=== PATIENT | male | born 1990 | race Hispanic/Latino ===

== ENCOUNTER 2017-01-04 22:25 | Emergency (ER) | payer MEDICAID ==
[2017-01-04 22:26] VITALS: BMI 29.0
[2017-01-04] MEDS ORDERED: Sodium Chloride 0.9% 1,000 ML IV ONE (23:11)
[2017-01-04] MEDS ORDERED: Pantoprazole 80 MG in Sodium Chloride 0.9% 100 ML IV STA (23:11)
--- NOTE | 2017-01-04 23:11 | C.PDOC ---
History Of Present Illness Patient presents to the ER with a complaint of multiple episodes of rectal bleeding throughout the day, associated with lightheadedness and dizziness. Patient states he has had bright red blood per rectum; he notes he was seen in [facility] yesterday for abdominal pain, patient had a negative CT and was discharged home. Denies chest pain, palpitations, SOB, or foreign body insertion. Time Seen by Provider: 01/04/17 23:04 Chief Complaint (Nursing): Male Genitourinary History Per: Patient History/Exam Limitations: no limitations Onset/Duration Of Symptoms: Hrs Current Symptoms Are (Timing): Still Present Severity: Mild Pain Scale Rating Of: 4 Quality Of Discomfort: Unable To Describe Associated Symptoms: denies: Fever, Chills, Diarrhea, Chest Pain, Constipation, Other (SOB, palpitations) Alleviating Factors: None Recent travel outside of the [place]: No Past Medical History Reviewed: Historical Data, Nursing Documentation, Vital Signs Vital Signs: Last Vital Signs Temp 98.1 F 01/04/17 22:36 Pulse 84 01/04/17 22:36 Resp 17 01/04/17 22:36 BP 112/73 01/04/17 22:36 Pulse Ox 100 01/04/17 23:53 - Medical History PMH: Bipolar Disorder Surgical History: No Surg Hx Family History: States: No Known Family Hx - Social History Hx Alcohol Use: No Hx Substance Use: No - Immunization History Hx Tetanus Toxoid Vaccination: Yes Hx Influenza Vaccination: No Hx Pneumococcal Vaccination: No Review Of Systems Constitutional: Negative for: Fever, Chills Cardiovascular: Negative for: Chest Pain, Palpitations Respiratory: Negative for: Shortness of Breath Gastrointestinal: Positive for: Other (Rectal bleeding). Negative for: Nausea Genitourinary: Negative for: Dysuria Musculoskeletal: Negative for: Back Pain Skin: Negative for: Rash Neurological: Negative for: Weakness Psych: Negative for: Anxiety Physical Exam - Physical Exam Appears: Non-toxic, Other (Awake, Alert) Skin: Warm, Dry Head: Normacephalic Eye(s): bilateral: Normal Inspection Oral Mucosa: Moist Neck: Supple Chest: Symmetrical Cardiovascular: Rhythm Regular Respiratory: No Rales, No Rhonchi, No Wheezing Gastrointestinal/Abdominal: Soft, No Tenderness Rectal: Normal Exam, No Heme Positive, Maroon Stool, No Hemorrhoids, No Tenderness Back: No CVA Tenderness Extremity: Normal ROM Extremity: Bilateral: Atraumatic Pulses: Left Dorsalis Pedis: Normal, Right Dorsalis Pedis: Normal Neurological/Psych: Oriented x3, Normal Speech, Normal Cognition Gait: Steady ED Course And Treatment - Laboratory Results Result Diagrams: 01/04/17 23:25 01/04/17 23:25 O2 Sat by Pulse Oximetry: 100 (Room air) Pulse Ox Interpretation: Normal Progress Note: Blood work, urinalysis, and occult blood test ordered. Protonix and IV fluids administered. Medical Decision Making Medical Decision Making: Upon provider reevaluation patient is feeling better, is medically stable, and requires no further treatment in the ED at this time. Patient will be discharged home with Rx for miralax . Counseling was provided and all questions were answered regarding diagnosis and need for follow up with dr barron. There is agreement to discharge plan. Return if symptoms persist or worsen. Disposition Counseled Patient/Family Regarding: Studies Performed, Diagnosis, Need For Followup - Disposition Referrals: Ramon Barron MD [Primary Care Provider] - Disposition: HOME/ ROUTINE Disposition Time: 23:04 Condition: FAIR Instructions: Rectal Bleeding (DC) Forms: [employer] (Martiniquais) - Clinical Impression Clinical Impression: Rectal bleeding - Scribe Statement The provider has reviewed the documentation as recorded by the Scribe Yohan Rob All medical record entries made by the Scribe were at my direction and personally dictated by me. I have reviewed the chart and agree that the record accurately reflects my personal performance of the history, physical exam, medical decision making, and the department course for this patient. I have also personally directed, reviewed, and agree with the discharge instructions and disposition.
[2017-01-04] MEDS ORDERED: Sodium Chloride 0.9% 1,000 ML ONE (23:26)
[2017-01-04 23:34] LABS: BASO % 0.5 % (0.0-2.0); EOS % 0.4 % (0.0-4.0); HEMATOCRIT 41.3 % (35.0-51.0); LYMPH # 2.6 K/uL (1.0-4.3); LYMPH % 26.8 % (20.0-40.0); MEAN CELL VOLUME 87.1 fL (80.0-94.0); MEAN CORPUSCULAR HEMOGLOBIN 29.7 pg (27.0-31.0); MEAN PLATELET VOLUME 8.5 fL (7.2-11.7); MONO # 0.9 K/uL (0.0-0.8); MONO % 9.9 % (0.0-10.0); NRBC % 0.1 % (0.0-2.0); RED CELL DISTRIBUTION WIDTH 13.8 % (11.5-14.5); WHITE BLOOD COUNT 9.5 K/uL (4.8-10.8)
[2017-01-04 23:37] LABS: CHLORIDE 100 mmol/L (98-107); SODIUM 135 mmol/L (132-148)
[2017-01-04 23:39] LABS: GFR AFRICAN-AMERICAN > 60; RBC URINE < 1 /hpf (0-3); URINE BACTERIA RARE (<OCC); URINE BILIRUBIN NEGATIVE (NEGATIVE); URINE BLOOD NEGATIVE (NEGATIVE); URINE COLOR Yellow (YELLOW); URINE GLUCOSE (UA) NORMAL (Normal); URINE KETONE NEGATIVE (NEGATIVE); URINE LEUKOCYTE ESTERASE NEG Leu/uL (Negative); URINE PROTEIN NEGATIVE (NEGATIVE); WBC URINE 2 /hpf (0-5)
[2017-01-04 23:40] LABS: ALB/GLOB RATIO 1.5 (1.0-2.1); ALKALINE PHOSPHATASE 40 U/L (38-126); ALT/SGPT 30 U/L (21-72); AST/SGOT 18 U/L (17-59); BILIRUBIN,TOTAL 0.8 mg/dL (0.2-1.3); BLOOD UREA NITROGEN 16 mg/dL (9-20); CARBON DIOXIDE 24 mmol/L (22-30); GLUCOSE,RANDOM 96 mg/dL (75-110); TOTAL PROTEIN 6.8 g/dL (6.3-8.3)
[2017-01-05 00:47] VITALS: BP 99/64; PULSE 64; RESP 16; TEMP 97.5; O2SAT 98
== END 2017-01-05 01:11 | disposition home or self-care (01) ==
LOC: C.ER 22:25 → SUPCPDRO 22:25 → C.ER 01-05 01:11
DX: K62.5 Hemorrhage of anus and rectum (principal)
CPT/HCPCS: 80053; 81001; 85025; 85610; 85730; 86850; 86900; 96361; 96374; 99285; C9113; G0328; J7040

== ENCOUNTER 2017-06-05 19:03 | Inpatient (IN) | payer MEDICAID ==
[2017-06-05 19:03] VITALS: BMI 29.1
--- NOTE | 2017-06-05 19:27 | C.PDOC ---
History Of Present Illness Homeless 27 yo male who is with history of bipolar disorder presents to the ER stating he has suicidal and homicidal ideation. Patient reports good compliance with his psych medications. Denies drug or ETOH use. Time Seen by Provider: 06/05/17 19:26 Chief Complaint (Nursing): Psychiatric Evaluation History Per: Patient History/Exam Limitations: no limitations Onset/Duration Of Symptoms: Days Current Symptoms Are (Timing): Still Present Suicide/Self Injury Attempted (Context): None Associated Symptoms: Suicidal Thoughts, Other (Homicidal ideation). denies: Suicidal Plan Involuntary Hold By: None Recent travel outside of the [place]: No Past Medical History Reviewed: Historical Data, Nursing Documentation, Vital Signs Vital Signs: Last Vital Signs Temp 98.1 F 06/05/17 19:10 Pulse 42 L 06/05/17 19:10 Resp 16 06/05/17 19:10 BP 109/72 06/05/17 19:10 Pulse Ox 99 06/05/17 20:47 - Medical History PMH: Bipolar Disorder Family History: States: Unknown Family Hx - Social History Hx Alcohol Use: No Hx Substance Use: No - Immunization History Hx Tetanus Toxoid Vaccination: Yes Hx Influenza Vaccination: No Hx Pneumococcal Vaccination: No Review Of Systems Except As Marked, All Systems Reviewed And Found Negative. Psych: Positive for: Suicidal ideation, Other (Homicidal ideation) Physical Exam - Physical Exam Appears: Non-toxic, No Acute Distress, Other (Flat affect, actively verbalizing SI and HI, calm, cooperative, no active hallucinations) Skin: Normal Color, Warm, Dry Head: Atraumatic, Normacephalic Eye(s): bilateral: Normal Inspection Chest: Symmetrical, No Tenderness Cardiovascular: Rhythm Regular Respiratory: Normal Breath Sounds, No Accessory Muscle Use Gastrointestinal/Abdominal: Soft, No Tenderness Extremity: Normal ROM (x4) Neurological/Psych: Oriented x3, Normal Speech ED Course And Treatment - Laboratory Results Result Diagrams: 06/05/17 20:01 06/05/17 20:01 O2 Sat by Pulse Oximetry: 99 Progress - Re-Evaluation Re-evaluation Note: 06/05/17 20:29 EXAM [facility] MED CLEAR FOR PSYCH EVAL. CRISIS NOTIFIED - Data Reviewed Data Reviewed: Old records Medical Decision Making Medical Decision Making: Plan: * Blood work * Urinalysis * Crisis consult Disposition Discussed With DrTheo: Nestor M Elva Counseled Patient/Family Regarding: Studies Performed, Diagnosis - Disposition Disposition: HOSPITALIZED Disposition Time: 22:05 Condition: STABLE Forms: [employer] (Frisian) - Clinical Impression Clinical Impression: Bipolar disorder, Suicidal ideation, Homicidal ideation - Scribe Statement The provider has reviewed the documentation as recorded by the Scribiman Rob All medical record entries made by the Scribe were at my direction and personally dictated by me. I have reviewed the chart and agree that the record accurately reflects my personal performance of the history, physical exam, medical decision making, and the department course for this patient. I have also personally directed, reviewed, and agree with the discharge instructions and disposition. Decision To Admit - Pt Status Changed To: Hospital Disposition Of: Inpatient - Admit Certification Admit to Inpatient:: After my assessment, the patient will require hospitalization for at least two midnights. This is because of the severity of symptoms shown, intensity of services needed, and/or the medical risk in this patient being treated as an outpatient. - InPatient: Physician Admission Certification: I certify that this patient requires 2 or more midnights of care for the following reason:: SEE NOTE - . Bed Request Type: Psychiatry Admitting Physician: Nestor Stevenson Patient Diagnosis: Bipolar disorder, Suicidal ideation, Homicidal ideation
[2017-06-05 20:04] LABS: BASO # 0.1 K/uL (0.0-0.2); BASO % 0.8 % (0.0-2.0); EOS # 0.2 K/uL (0.0-0.7); HEMOGLOBIN 15.1 g/dL (12.0-18.0); LYMPH # 3.4 K/uL (1.0-4.3); LYMPH % 38.5 % (20.0-40.0); MEAN CELL VOLUME 86.4 fL (80.0-94.0); MEAN CORPUSCULAR HEMOGLOBIN 30.1 pg (27.0-31.0); MEAN CORPUSCULAR HGB CONC 34.8 g/dL (33.0-37.0); MEAN PLATELET VOLUME 8.2 fL (7.2-11.7); MONO # 0.8 K/uL (0.0-0.8); MONO % 9.3 % (0.0-10.0); NEUT # 4.4 K/uL (1.8-7.0); NEUT % 49.4 % (50.0-75.0); NRBC % 0.1 % (0.0-2.0); RBC 5.02 Mil/uL (4.40-5.90); RED CELL DISTRIBUTION WIDTH 13.8 % (11.5-14.5); WHITE BLOOD COUNT 8.9 K/uL (4.8-10.8)
[2017-06-05 20:12] LABS: SQUAMOUS EPITHIAL < 1 /hpf (0-5); URINE BACTERIA RARE (<OCC); URINE BILIRUBIN NEGATIVE (NEGATIVE); URINE BLOOD NEGATIVE (NEGATIVE); URINE CLARITY Clear (Clear); URINE COLOR Yellow (YELLOW); URINE GLUCOSE (UA) NORMAL (Normal); URINE LEUKOCYTE ESTERASE NEG Leu/uL (Negative); URINE PROTEIN NEGATIVE (NEGATIVE); URINE UROBILINOGEN NORMAL mg/dL (0.2-1.0)
[2017-06-05 20:18] LABS: ALB/GLOB RATIO 1.3 (1.0-2.1); ALT/SGPT 31 U/L (21-72); AST/SGOT 23 U/L (17-59); BLOOD UREA NITROGEN 15 mg/dL (9-20); CALCIUM 9.1 mg/dl (8.6-10.4); GFR AFRICAN-AMERICAN > 60; GFR NON-AFRICAN AMERICAN > 60
[2017-06-05 20:24] LABS: BARBITURATES, UR NEGATIVE (NEGATIVE); BENZODIAZEPINES, UR NEGATIVE (NEGATIVE); OPIATES, UR NEGATIVE (NEGATIVE); PHENCYCLIDINE, UR NEGATIVE (NEGATIVE)
--- NOTE | 2017-06-05 23:42 | PCM.BM ---
<George Tilley - Last Filed: 06/05/17 23:39> Treatment Plan Problems - Problems identified on initial assessmt Homicidal Ideation Date Initiated: 06/05/17 Time Initiated: 23:00 Assessment reference: NA Status: Active Suicidal Ideation Date Initiated: 06/05/17 Time Initiated: 23:00 Assessment reference: NA Status: Active Treatment assets and liabiliti Patient Assests: cooperative, self-reliant, ADL independent, physically healthy , negotiates basic needs Patient Liabilities: live alone, financial problems, poor support system, relationship conflicts - Milieu Protocol Maintain good personal hygiene: daily Encourage regular showers, daily Remind patient to perform daily oral care, daily Assist patient to perform ADL's Maintain personal safety: every shift Educate patient to report safety concerns to staff, every shift Monitor environment for contraband/sharps Medication safety: Monitor for expected outcome, potential side effects: every shift, Assess barriers to learning: every shift, Assess readiness for medication education: every shift <Katy Bennett - Last Filed: 06/08/17 10:51> - Diagnosis (1) Bipolar disorder Status: Acute Interventions: 06/08/17 10:51 * Assess/adjust medications daily and /or as needed * See patient on an individual basis 7x/week to assess level of manic behaviors and stability * Discuss risks, benefits, side effects and alternatives of medications * <Lola Pugh - Last Filed: 06/08/17 11:17> Family Contact Family involvement: Famliy/SO not involved - Goals for Treatment Patient goals for treatment: "I need constant therapy." Discharge/Continuing Care - Education Needs Education Needs: Patient Medication, Patient Coping Skills - Discharge Discharge Criteria: Tolerates medication w/o severe side effects, Reduction of target symptoms Discharge to:: Home - Treatment Team Participation Discussed with Family/SO: No Was Patient/Family/SO present at Treatment Team Meeting: Yes
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
[2017-06-06] MEDS: Divalproex 500 mg DR Tab PO SCH ×2 (14:27→17:13)
[2017-06-07] MEDS: Divalproex 500 mg DR Tab PO SCH ×2 (10:46→17:26)
--- NOTE | 2017-06-07 13:51 | PCM.PYCHPN ---
Psychiatric Progress Note - Psychiatric Progress Note Patient seen today, length of contact: 15 min Patient Chief Complaint: "I want to kill my mother and myself" Problems Identified/Issues Discussed: Patient seen and evaluated, chart reviewed and discussed with the nurse. Patient reports irritability and agitation. He still reports auditory hallucinations and persecutory delusions. He is reporting thoughts of killing his mother and thoughts of killing himself. Patient still appears somewhat disorganized and somewhat internally preoccupied. However he remained calm and cooperative. He is taking medication and denies any side effects. He is more time for stabilization. Supportive therapy and psychoeducation were given Medication Change: No Medical Record Reviewed: Yes Mental Status Examination - Cognitive Function Orientation: Person, Place, Situation, Time Memory: Intact Attention: WNL Concentration: Poor Association: WNL Fund of Knowledge: Poor - Mood Mood: Anxious - Affect Affect: Broad - Speech Speech: Soft - Formal Thought Process Formal Thought Process: Hallucinations, Paranoia - Suicidal Ideation Suicidal Ideation: Yes - Homicidal Ideation Homicidal Ideation: Yes Goal/Treatment Plan - Goal/Treatment Plan Need for Continued Stay: Severe depression anxiety, Severe functional impairment Progress Toward Problem(s) and Goals/Treatment Plan: Bipolar disorder depressed severe with psychotic features -CBT -Psychoeducation -Supportive therapy, group therapy, individual therapy -Depakote 500 mg PO BID -Risperdal 2 gm PO QH -Cogentin 1 mg po HS -Paxil 10 mg O Daily -Neurontin 100 mg PO TID -Trazodone 50 mg by mouth daily at bedtime - Smoking Cessation Smoking Cessation Initiated: No
[2017-06-08] MEDS: Divalproex 500 mg DR Tab PO SCH ×2 (09:56→17:10)
[2017-06-08] MEDS ORDERED: Influenza Vaccine 60 mcg/0.5 mL SYR (4YR UP) IM ONE (10:10)
[2017-06-08] MEDS ORDERED: Pneumococcal 23-Valent Vaccine IM ONE (10:30)
--- NOTE | 2017-06-08 10:50 | PCM.PYCHPN ---
Psychiatric Progress Note - Psychiatric Progress Note Patient seen today, length of contact: 16 min Patient Chief Complaint: "I want to kill my mother and myself" Problems Identified/Issues Discussed: Patient seen and evaluated, chart reviewed and discussed with the nurse. As per the staff, patient is calling his mother and speaking to her daily. However, during interview he still reporting thoughts of killing his mother and thoughts of killing himself. Patient reports irritability and agitation. He still reports auditory hallucinations and persecutory delusions. However he remained calm and cooperative. He appears much better than yesterday, but he is insisting to go to long-term inpatient psychiatric unit. He is taking medication and denies any side effects. He needs more time for stabilization. Supportive therapy and psychoeducation were given Medication Change: Yes (increase neurontin) Medical Record Reviewed: Yes Mental Status Examination - Cognitive Function Orientation: Person, Place, Situation, Time Memory: Intact Attention: WNL Concentration: Poor Association: WNL Fund of Knowledge: Poor - Mood Mood: Anxious - Affect Affect: Broad - Speech Speech: Soft - Formal Thought Process Formal Thought Process: Hallucinations, Paranoia - Suicidal Ideation Suicidal Ideation: Yes - Homicidal Ideation Homicidal Ideation: Yes Goal/Treatment Plan - Goal/Treatment Plan Need for Continued Stay: Severe depression anxiety, Severe functional impairment Progress Toward Problem(s) and Goals/Treatment Plan: Bipolar disorder depressed severe with psychotic features -CBT -Psychoeducation -Supportive therapy, group therapy, individual therapy -Depakote 500 mg PO BID -Risperdal 2 gm PO QH -Cogentin 1 mg po BID -Paxil 10 mg O Daily -Neurontin 300 mg PO TID -Trazodone 50 mg by mouth daily at bedtime - Smoking Cessation Smoking Cessation Initiated: No
[2017-06-09] MEDS: Divalproex 500 mg DR Tab PO SCH ×2 (09:22→17:51)
[2017-06-09] MEDS ORDERED: DiphenhydrAMINE 50 mg/ml Inj IM PRN (19:32)
[2017-06-09] MEDS ORDERED: DiphenhydrAMINE 50 mg/ml Inj ONE (19:36)
[2017-06-10] MEDS: Divalproex 500 mg DR Tab PO SCH ×2 (09:31→18:21)
[2017-06-11] MEDS: Divalproex 500 mg DR Tab PO SCH ×2 (09:08→17:40)
--- NOTE | 2017-06-11 12:20 | CARD ---
APPROVED REPORT EKG Measurement Heart [id number] <Conclusion> Normal sinus rhythm with sinus arrhythmia Normal ECG
--- NOTE | 2017-06-11 14:11 | PCM.PYCHPN ---
Psychiatric Progress Note - Psychiatric Progress Note Patient seen today, length of contact: 15 minutes Patient Chief Complaint: "I feel well today" Problems Identified/Issues Discussed: The pt is seen, chart reviewed, case discussed with staff. Patient states that he feels well today. The event over the weekend was discussed. Patient explains that the "chest pain" and "muscle twitching" he got , is characteristic of his typically EPS episodes from prior medications. He states that when he was first diagnosed with bipolar disorder, he was started on risperdol, which at one point had given him EPS symptoms. At a later date, he was switched to Abilify, which he took for about 2 years and felt well . He then stopped taking his medication for 2 months, then was restarted on Invega, which again gave him a few episodes of the muscle twitching. These episodes were thoroughly explained to patient, who expressed his understanding. He is open to optimizing his current medical regimen. His symptoms are otherwise improving, needs more time to stabilize. After care discussed, support and psychoeducation given. Denies any SI/HI. Medical Problems: None reported Diagnostic Results: Reviewed DSM 5 Symptoms Update: Improving with treatment Medication Change: No Medical Record Reviewed: Yes Mental Status Examination - Cognitive Function Orientation: Person, Place, Situation, Time Memory: Intact Attention: WNL Concentration: WNL Association: [facility] Fund of Knowledge: [facility] Decription of patient's judgement and insights: Fair - Mood Mood: Anxious - Affect Affect: Flat - Speech Speech: Appropriate - Formal Thought Process Formal Thought Process: No Impairment - Suicidal Ideation Suicidal Ideation: No - Homicidal Ideation Homicidal Ideation: No Goal/Treatment Plan - Goal/Treatment Plan Need for Continued Stay: Remain at risks for inpatient hospitalization, Discharge may exacerbated symptoms, Severe functional impairment Progress Toward Problem(s) and Goals/Treatment Plan: Continue medications, will start on abilify and monitor patient tolerance Support and psychoeducation daily Attend groups and activities daily Patient will go to [facility] day program after discharge from the hospital for follow-up care. Estimated Date of D/C: 06/18/17 - Smoking Cessation Smoking Cessation Initiated: No
[2017-06-11] MEDS: Simethicone 80 mg Chewtab PO PRN (21:35)
[2017-06-12] MEDS: Divalproex 500 mg DR Tab PO SCH ×2 (10:30→17:02)
--- NOTE | 2017-06-12 12:14 | PCM.PYCHPN ---
Psychiatric Progress Note - Psychiatric Progress Note Patient seen today, length of contact: 15 minutes Patient Chief Complaint: "I feel a lot better today" Problems Identified/Issues Discussed: The pt is seen, chart reviewed, case discussed with staff. Patient states that he feels much better today. Denies any recurrent muscle twitching. Denies any SI /HI, hallucinations, or depression. He is improving and needs more time to stabilize. After care discussed, support and psychoeducation given. Staff reported that patient is very intrusive. Issues discussed with the patient. Medical Problems: None reported Diagnostic Results: Reviewed DSM 5 Symptoms Update: Improving with treatment Medication Change: No Medical Record Reviewed: Yes Mental Status Examination - Cognitive Function Orientation: Person, Place, Situation, Time Memory: Intact Attention: WNL Concentration: WNL Association: WNL Fund of Knowledge: [facility] Decription of patient's judgement and insights: Fair - Mood Mood: Anxious - Affect Affect: Flat - Speech Speech: Appropriate - Formal Thought Process Formal Thought Process: No Impairment - Suicidal Ideation Suicidal Ideation: No - Homicidal Ideation Homicidal Ideation: No Goal/Treatment Plan - Goal/Treatment Plan Need for Continued Stay: Remain at risks for inpatient hospitalization, Discharge may exacerbated symptoms, Severe functional impairment Progress Toward Problem(s) and Goals/Treatment Plan: Continue medications Support and psychoeducation daily Attend groups and activities daily Patient wants to go to [facility] day care program after discharge from the hospital for follow-up care. Estimated Date of D/C: 06/18/17 - Smoking Cessation Smoking Cessation Initiated: No
[2017-06-13] MEDS: Divalproex 500 mg DR Tab PO SCH ×2 (09:52→17:09)
[2017-06-13] MEDS: Simethicone 80 mg Chewtab PO PRN (09:53)
--- NOTE | 2017-06-13 10:23 | PCM.PYCHPN ---
Psychiatric Progress Note - Psychiatric Progress Note Patient seen today, length of contact: 15 min Patient Chief Complaint: "I'm feeling much better today" Problems Identified/Issues Discussed: The pt is seen, chart reviewed, case discussed with staff. Patient feeling much better today. He states that he feels well overall and is without complaint. Denies any SI/HI, hallucinations, muscle spasms or depression. No other events noted. After care discussed, support and psychoeducation given. Again staff reported that patient was still intrusive but less than before. Again issues discussed with the patient. Medical Problems: None reported Diagnostic Results: Reviewed DSM 5 Symptoms Update: Improving with treatment Medication Change: No Medical Record Reviewed: Yes Mental Status Examination - Cognitive Function Orientation: Person, Place, Situation, Time Memory: Intact Attention: WNL Concentration: WNL Association: WNL Fund of Knowledge: [facility] Decription of patient's judgement and insights: Fair - Mood Mood: Anxious - Affect Affect: Flat - Speech Speech: Appropriate - Formal Thought Process Formal Thought Process: No Impairment - Suicidal Ideation Suicidal Ideation: No - Homicidal Ideation Homicidal Ideation: No Goal/Treatment Plan - Goal/Treatment Plan Need for Continued Stay: Remain at risks for inpatient hospitalization, Discharge may exacerbated symptoms, Severe functional impairment Progress Toward Problem(s) and Goals/Treatment Plan: Continue medications Support and psychoeducation daily Attend groups and activities daily Patient will go to [facility] day program for follow-up care after discharge from the hospital. Estimated Date of D/C: 06/18/17 [place] [place] - Smoking Cessation Smoking Cessation Initiated: No
--- NOTE | 2017-06-13 12:39 | CARD ---
APPROVED REPORT EKG Measurement Heart [id number] <Conclusion> Normal sinus rhythm Possible Left atrial enlargement Borderline ECG
[2017-06-14] MEDS: Divalproex 500 mg DR Tab PO SCH ×2 (09:35→17:50)
--- NOTE | 2017-06-14 11:43 | PCM.PYCHPN ---
Psychiatric Progress Note - Psychiatric Progress Note Patient seen today, length of contact: 15 min Patient Chief Complaint: "I feel well" Problems Identified/Issues Discussed: The pt is seen, chart reviewed, case discussed with staff. Patient states that he feels well overall and is without complaint. Denies any SI/HI, hallucinations , muscle spasms or depression. No other events noted. After care discussed, support and psychoeducation given. Medical Problems: None reported Diagnostic Results: Reviewed DSM 5 Symptoms Update: Improving with treatment Medication Change: No Medical Record Reviewed: Yes Mental Status Examination - Cognitive Function Orientation: Person, Place, Situation, Time Memory: Intact Attention: WNL Concentration: WNL Association: [facility] Fund of Knowledge: [facility] Decription of patient's judgement and insights: Fair - Mood Mood: Neutral - Affect Affect: Blunted - Speech Speech: Appropriate - Formal Thought Process Formal Thought Process: No Impairment - Suicidal Ideation Suicidal Ideation: No - Homicidal Ideation Homicidal Ideation: No Goal/Treatment Plan - Goal/Treatment Plan Need for Continued Stay: Remain at risks for inpatient hospitalization, Discharge may exacerbated symptoms, Severe functional impairment Progress Toward Problem(s) and Goals/Treatment Plan: Continue medications Support and psychoeducation daily Attend groups and activities daily Patient will go to [facility] day program for follow-up care after discharge from the hospital. Estimated Date of D/C: 06/18/17 ([facility] [place]) - Smoking Cessation Smoking Cessation Initiated: No
--- NOTE | 2017-06-15 09:32 | PCM.BM ---
<Lola Pugh - Last Filed: 06/15/17 09:31> Treatment Plan Problems - Problems identified on initial assessmt Homicidal Ideation Date Initiated: 06/05/17 Time Initiated: 23:00 Assessment reference: NA Status: Active Suicidal Ideation Date Initiated: 06/05/17 Time Initiated: 23:00 Assessment reference: NA Status: Active Treatment assets and liabiliti Patient Assests: cooperative, self-reliant, ADL independent, physically healthy , negotiates basic needs Patient Liabilities: live alone, financial problems, poor support system, relationship conflicts - Milieu Protocol Maintain good personal hygiene: daily Encourage regular showers, daily Remind patient to perform daily oral care, daily Assist patient to perform ADL's Maintain personal safety: every shift Educate patient to report safety concerns to staff, every shift Monitor environment for contraband/sharps Medication safety: Monitor for expected outcome, potential side effects: every shift, Assess barriers to learning: every shift, Assess readiness for medication education: every shift Milieu Narrative: Continue medications Support and psychoeducation daily Attend groups and activities daily Patient will go to [facility] day program for follow-up care after discharge from the hospital. Family Contact Family involvement: Famliy/SO not involved - Goals for Treatment Patient goals for treatment: "I need constant therapy." Discharge/Continuing Care - Education Needs Education Needs: Patient Medication, Patient Coping Skills - Discharge Discharge Criteria: Tolerates medication w/o severe side effects, Reduction of target symptoms Discharge to:: Home - Treatment Team Participation Patient/Family/SO Statement: Continue medications Support and psychoeducation daily Attend groups and activities daily Patient will go to [facility] day program for follow-up care after discharge from the hospital. Discussed with Family/SO: No Was Patient/Family/SO present at Treatment Team Meeting: Yes Treatment Plan Review - Problem Homicidal Ideation Time Initiated: 23:00 Suicidal Ideation Time Initiated: 23:00 - Discharge / Continuing Care Discharge to:: Home Behavioral Health Services: Partial hospital Health Needs: Medications/Rx <Joan Pop - Last Filed: 06/15/17 14:37> Treatment Plan Review - Problem Homicidal Ideation Date Initiated: 06/15/17 Time Initiated: 14:36 Progress toward outcomes: improved Suicidal Ideation Date Initiated: 06/15/17 Time Initiated: 14:36 Progress toward outcomes: improved <Chris Valente - Last Filed: 06/17/17 22:12> - Diagnosis (1) Depression Status: Acute Interventions: 06/17/17 22:12 * Assess/adjust medications daily and /or as needed * See patient on an individual basis 7x/week to assess symptoms of depression * Monitor for side effects & effectiveness of medications *
[2017-06-15] MEDS: Divalproex 500 mg DR Tab PO SCH ×2 (09:52→17:24)
--- NOTE | 2017-06-15 12:20 | PCM.PYCHPN ---
Psychiatric Progress Note - Psychiatric Progress Note Patient seen today, length of contact: 15 min Patient Chief Complaint: "I feel well" Problems Identified/Issues Discussed: The pt is seen, chart reviewed, case discussed with staff. Patient states that he feels well today. Denies any SI/HI. No other symptoms noted. He is compliant with his medications. No noted side effects. After care discussed, support and psychoeducation given. Medical Problems: None reported Diagnostic Results: Reviewed DSM 5 Symptoms Update: Improving with treatment Medication Change: No Medical Record Reviewed: Yes Mental Status Examination - Cognitive Function Orientation: Person, Place, Situation, Time Memory: Intact Attention: WNL Concentration: WNL Association: [facility] Fund of Knowledge: [facility] Decription of patient's judgement and insights: Fair - Mood Mood: Neutral - Affect Affect: Other (appropriate) - Speech Speech: Appropriate - Formal Thought Process Formal Thought Process: No Impairment Psychotic Thoughts and Behaviors: None - Suicidal Ideation Suicidal Ideation: No - Homicidal Ideation Homicidal Ideation: No Goal/Treatment Plan - Goal/Treatment Plan Need for Continued Stay: Remain at risks for inpatient hospitalization, Discharge may exacerbated symptoms, Severe functional impairment Progress Toward Problem(s) and Goals/Treatment Plan: Continue medications Support and psychoeducation daily Attend groups and activities daily Patient will go to [facility] day program for follow-up care after discharge from the hospital. Estimated Date of D/C: 06/18/17 ([facility] [place] - Smoking Cessation Smoking Cessation Initiated: No
[2017-06-16] MEDS: Divalproex 500 mg DR Tab PO SCH ×2 (09:09→17:03)
--- NOTE | 2017-06-16 21:46 | PCM.PYCHPN ---
Psychiatric Progress Note - Psychiatric Progress Note Patient seen today, length of contact: 15 min Patient Chief Complaint: "Anxious" Problems Identified/Issues Discussed: The pt is seen, chart reviewed, case discussed with staff. The pt is compliant with medications and reports no side-effects. Symptoms are improving but needs more time to stabilize. After care discussed, support and psychoeducation given. Med- seeking Medication Change: Yes (increase trazodon) Medical Record Reviewed: Yes Mental Status Examination - Cognitive Function Orientation: Person, Place, Situation, Time Memory: Intact Attention: WNL Concentration: WNL Association: WNL Fund of Knowledge: WNL - Mood Mood: Neutral - Affect Affect: Other (appropriate) - Speech Speech: Appropriate - Formal Thought Process Formal Thought Process: No Impairment - Suicidal Ideation Suicidal Ideation: No - Homicidal Ideation Homicidal Ideation: No Goal/Treatment Plan - Goal/Treatment Plan Need for Continued Stay: Discharge may exacerbated symptoms, Severe functional impairment Progress Toward Problem(s) and Goals/Treatment Plan: Continue medications Support and psychoeducation daily Attend groups and activities daily After care planning by JUDSON Estimated Date of D/C: 06/18/17 ([facility] [place])
[2017-06-17 07:09] VITALS: O2SAT 97
[2017-06-17] MEDS: Divalproex 500 mg DR Tab PO SCH ×2 (10:03→17:37)
--- NOTE | 2017-06-17 22:12 | PCM.PYCHPN ---
Psychiatric Progress Note - Psychiatric Progress Note Patient seen today, length of contact: 16 min Patient Chief Complaint: "Sleep is so so" Problems Identified/Issues Discussed: The pt is seen, chart reviewed, case discussed with staff. The pt is compliant with medications and reports no side-effects. Symptoms are improving but needs more time to stabilize. After care discussed, support and psychoeducation given. He is worried about his after care - discussed Medication Change: No Medical Record Reviewed: Yes Mental Status Examination - Cognitive Function Orientation: Person, Place, Situation, Time Memory: Intact Attention: WNL Concentration: WNL Association: WNL Fund of Knowledge: WNL - Mood Mood: Anxious - Affect Affect: Constricted - Speech Speech: Appropriate - Formal Thought Process Formal Thought Process: No Impairment - Suicidal Ideation Suicidal Ideation: No - Homicidal Ideation Homicidal Ideation: No Goal/Treatment Plan - Goal/Treatment Plan Need for Continued Stay: Discharge may exacerbated symptoms, Severe functional impairment Progress Toward Problem(s) and Goals/Treatment Plan: Continue medications Support and psychoeducation daily Attend groups and activities daily After care planning by JUDSON Est[place] Date of D/[place]: [place]18[place] [place]
[2017-06-18 09:06] VITALS: BP 124/86; PULSE 102; RESP 18; TEMP 98.3
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
[2017-06-18] MEDS: Divalproex 500 mg DR Tab PO SCH (10:42)
== END 2017-06-18 12:35 | disposition home or self-care (01) | DRG 430 ==
LOC: C.ER 19:03 → C.5E 22:06
PROC: GZHZZZZ Group Psychotherapy (ICD-10-PCS; principal; 2017-06-05)
PROC: GZ58ZZZ Individual Psychotherapy, Cognitive-Behavioral (ICD-10-PCS; 2017-06-05)
PROC: GZ56ZZZ Individual Psychotherapy, Supportive (ICD-10-PCS; 2017-06-05)
DX: F31.5 Bipolar disorder, current episode depressed, severe, with psychotic features (principal); R45.851 Suicidal ideations; R45.850 Homicidal ideations; Z91.410 Personal history of adult physical and sexual abuse; Z59.0 Homelessness

== ENCOUNTER 2017-11-17 18:47 | Observation (INO) | payer MEDICAID ==
[2017-11-17 18:47] VITALS: BMI 29.1
[2017-11-17] MEDS ORDERED: Fosphenytoin 1,000 MG in Sodium Chloride 0.9% 50 ML IV STA (19:20)
[2017-11-17] MEDS ORDERED: Sodium Chloride 0.9% 1,000 ML IV ONE (19:20)
--- NOTE | 2017-11-17 19:20 | C.PDOC ---
History Of Present Illness 27 year old male patient with hx of bipolar disorder and seizure presents to the ER with c/o frequent seizures. Patient states today he had 5 seizures and yesterday he has 8 seizures. Patient reports he takes depakote 500mg twice daily and that today he finished his daily dose. Patient notes he is homeless and lives in a alf. Patient denies fever, chills and headache. Time Seen by Provider: 11/17/17 19:16 Chief Complaint (Nursing): Seizure History Per: Patient History/Exam Limitations: no limitations Number Of Seizures: Multiple Past Medical History Reviewed: Historical Data, Nursing Documentation, Vital Signs Vital Signs: Last Vital Signs Temp 98.1 F 11/18/17 00:09 Pulse 52 L 11/18/17 00:09 Resp 20 11/18/17 00:09 BP 101/61 11/18/17 00:09 Pulse Ox 98 11/18/17 00:09 - Medical History PMH: Bipolar Disorder, Schizophrenia - [facility] Procedures GROUP PSYCHOTHERAPY (06/05/17) INDIVIDUAL PSYCHOTHERAPY, COGNITIVE-BEHAVIORAL (06/05/17) INDIVIDUAL PSYCHOTHERAPY, SUPPORTIVE (06/05/17) Family History: States: Unknown Family Hx - Social History Hx Alcohol Use: No Hx Substance Use: No - Immunization History Hx Tetanus Toxoid Vaccination: Yes Hx Influenza Vaccination: No Hx Pneumococcal Vaccination: No Review Of Systems Except As Marked, All Systems Reviewed And Found Negative. Constitutional: Negative for: Fever, Chills Neurological: Positive for: Seizures (x5 today). Negative for: Headache Physical Exam - Physical Exam Appears: Non-toxic, No Acute Distress Skin: Normal Color, Warm, Dry Head: Atraumatic, Normacephalic Eye(s): bilateral: Normal Inspection Ear(s): Bilateral: Normal Nose: Normal Oral Mucosa: Moist Neck: Normal ROM, Supple Chest: Symmetrical, No Deformity Cardiovascular: Rhythm Regular Respiratory: Normal Breath Sounds, No Rales, No Rhonchi, No Wheezing Gastrointestinal/Abdominal: Soft, No Tenderness Back: No CVA Tenderness Extremity: Normal ROM (x4) Extremity: Bilateral: Atraumatic Neurological/Psych: Oriented x3, Normal Speech, Normal Motor, Normal Sensation, Normal Reflexes, Other (mild postictal; no trauma) Gait: Steady ED Course And Treatment - Laboratory Results Result Diagrams: 11/17/17 19:27 08/18/18 19:27 ECG: Interpreted By Me, Viewed By Me ECG Rhythm: Sinus Rhythm ECG Interpretation: Normal, No Acute Changes Rate From EC O2 Sat by Pulse Oximetry: 96 (RA) Pulse Ox Interpretation: Normal Medical Decision Making Medical Decision Making: Impression: multiple seizures Plans: -- EKG -- blood work -- CXR -- Cerebyx -- IV fluids -- UA Reassess: Patient is resting comfortably. Tolerating IV. Disposition Doctor Will See Patient In The: Office Counseled Patient/Family Regarding: Studies Performed, Diagnosis - Disposition Disposition: HOSPITALIZED Disposition Time: 20:00 Condition: GOOD - Clinical Impression Clinical Impression: Tonic-clonic seizure, Bipolar 1 disorder - Scribe Statement The provider has reviewed the documentation as recorded by the Osman Pabon Do Provider Attestation: All medical record entries made by the Scribe were at my direction and personally dictated by me. I have reviewed the chart and agree that the record accurately reflects my personal performance of the history, physical exam, medical decision making, and the department course for this patient. I have also personally directed, reviewed, and agree with the discharge instructions and disposition.
[2017-11-17 19:31] LABS: BASO # 0.1 K/uL (0.0-0.2); BASO % 0.7 % (0.0-2.0); EOS # 0.1 K/uL (0.0-0.7); EOS % 0.9 % (0.0-4.0); HEMOGLOBIN 14.4 g/dL (12.0-18.0); LYMPH % 25.6 % (20.0-40.0); MEAN CELL VOLUME 87.7 fL (80.0-94.0); MEAN CORPUSCULAR HEMOGLOBIN 29.8 pg (27.0-31.0); MEAN PLATELET VOLUME 8.2 fL (7.2-11.7); MONO # 0.7 K/uL (0.0-0.8); MONO % 8.4 % (0.0-10.0); NEUT # 5.1 K/uL (1.8-7.0); NEUT % 64.4 % (50.0-75.0); NRBC % 0.1 % (0.0-2.0); RBC 4.82 Mil/uL (4.40-5.90); RED CELL DISTRIBUTION WIDTH 14.2 % (11.5-14.5); WHITE BLOOD COUNT 7.9 K/uL (4.8-10.8)
[2017-11-17 19:35] LABS: SQUAMOUS EPITHIAL < 1 /hpf (0-5); URINE BILIRUBIN NEGATIVE (NEGATIVE); URINE BLOOD NEGATIVE (NEGATIVE); URINE CLARITY Clear (Clear); URINE COLOR Yellow (YELLOW); URINE GLUCOSE (UA) NORMAL (Normal); URINE LEUKOCYTE ESTERASE NEG Leu/uL (Negative); URINE PROTEIN NEGATIVE (NEGATIVE)
[2017-11-17 19:42] LABS: ALB/GLOB RATIO 1.6 (1.0-2.1); ALBUMIN 4.2 g/dL (3.5-5.0); ALT/SGPT 36 U/L (21-72); AST/SGOT 21 U/L (17-59); BLOOD UREA NITROGEN 18 mg/dL (9-20); CALCIUM 9.3 mg/dl (8.6-10.4); GFR AFRICAN-AMERICAN > 60; GFR NON-AFRICAN AMERICAN > 60
[2017-11-17 19:48] LABS: BARBITURATES, UR NEGATIVE (NEGATIVE); BENZODIAZEPINES, UR NEGATIVE (NEGATIVE); OPIATES, UR NEGATIVE (NEGATIVE); PHENCYCLIDINE, UR NEGATIVE (NEGATIVE)
[2017-11-17] MEDS ORDERED: Fosphenytoin 1,000 MG in Sodium Chloride 0.9% 50 ML IV SCH (20:00)
[2017-11-17 22:41] VITALS: RESP 20
[2017-11-17] MEDS: Dextrose 5%/0.45% NS 1,000 ML IV SCH (22:52)
--- NOTE | 2017-11-18 09:02 | RAD ---
Chest x-ray single frontal view History: Seizure. Comparison: 11/17/2017 Findings: Mild venous congestion. Heart size within normal limits. Impression: Mild venous congestion.
[2017-11-18] MEDS: Phenytoin 100 mg/4 ml Oral Susp UD PO SCH ×3 (10:05→17:47)
[2017-11-18] MEDS: Dextrose 5%/0.45% NS 1,000 ML IV SCH (10:50)
[2017-11-18] MEDS: Divalproex 500 mg DR Tab PO SCH (21:03)
[2017-11-19] MEDS: Dextrose 5%/0.45% NS 1,000 ML IV SCH ×2 (02:30→14:08)
--- NOTE | 2017-11-19 04:34 | CON ---
Copied To: Octavio Jose MD Attending MD: Octavio Jose MD DATE: 11/18/2017 NEUROLOGY CONSULTATION REASON FOR CONSULTATION: Seizure. HISTORY OF PRESENT ILLNESS: The patient is a 27-year-old male who has been asking for evaluation of seizures. The patient apparently had 5 seizures prior on the date of admission that is yesterday and 8 seizures the day before. The patient was diagnosed with bipolar disorder as well as seizures. He was diagnosed with seizures when he was 23 years old. Seizures were described as jerky movements and sometimes he goes in a dream state and then comes out of it. He never had generalized seizures. At the moment, he feels fine. Denies any focal weakness nonetheless. REVIEW OF SYSTEMS: Denied any headaches, dizziness, chest pain, shortness of breath, abdominal pain, constipation, diarrhea, dysuria, pyuria, cough, and sputum production. PAST MEDICAL HISTORY: Includes bipolar disorder, seizure disorder. MEDICATIONS AT HOME: Include Abilify, trazodone, Risperdal, Neurontin, Depakote 500 mg b.i.d., benztropine, and hydroxyzine. ALLERGIES: NO KNOWN DRUG ALLERGIES. SOCIAL HISTORY: Denies smoking, use of alcohol, or illicit drugs. FAMILY HISTORY: Reviewed and noncontributory to the case. PHYSICAL EXAMINATION: GENERAL: The patient is a young male, sitting, in no acute distress. VITAL SIGNS: His blood pressure is 134/79, heart rate is 78 per minute, breathing at a rate of 16 per minute, temperature is 97.8 degrees Fahrenheit. HEENT: Normocephalic, atraumatic. NECK: Supple. There are no carotid bruits. LUNGS: Clear. CVS: S1 and S2 audible. No murmurs. ABDOMEN: Soft. Nontender. Bowel sounds present. NEUROLOGIC: Mental status: The patient is awake and alert, oriented to time, place, and person. His speech is fluent. Naming and repetition are normal. Memory and inclination are intact. Cranial nerve exam: Pupils are 3 mm bilaterally reactive to light. Visual de la garza are full. Extraocular movements are intact. There is no facial asymmetry. Palate is upgoing bilaterally and tongue is midline. Motor examination: Tone is normal. Power is 5/5 bilaterally in all four extremities. Reflexes are +1 and symmetrical. Plantars are downgoing bilaterally. Sensory examination intact to soft touch, pinprick, and vibration. Gait is deferred at the moment. LABORATORY DATA: Reviewed. Showed WBC 7.9, hemoglobin 14.4, hematocrit 42.2, and platelets of 234. Sodium is 144, potassium 4.2, chloride of 107, carbon dioxide 26, BUN of 18, creatinine 0.8, and glucose of 113. The patient had a urine toxicology screen, which is negative. IMPRESSION: Breakthrough seizures with history of seizure disorder, likely complex partial seizures. RECOMMENDATIONS: 1. The patient to have MRI of the brain without contrast. 2. The patient was on Depakote 500 mg twice a day. valproic acid level. 3. The patient was loaded with yesterday and started on Dilantin 100 mg three times a day. We will obtain serum Dilantin level in the morning. 4. The patient to have seizure precautions. 5. If the patient remains seizure free, then possible discharge with outpatient followup. Thank you for the opportunity to participate in the care of this patient. Octavio Jose MD
[2017-11-19 08:54] LABS: DILANTIN (PHENYTOIN) 6.6 ug/mL (10-20)
[2017-11-19 09:00] LABS: VALPROIC ACID 29.9 ug/mL (50.0-100.0)
--- NOTE | 2017-11-19 09:44 | CP.PCM.PN ---
Subjective - Date & Time of Evaluation Date of Evaluation: 11/19/17 Time of Evaluation: 07:30 - Subjective Subjective: PGY3 Resident - Medicine Progress Note ED course: 27 year old male patient with hx of bipolar disorder and seizure presents to the ER with c/o frequent seizures. Patient states today he had 5 seizures and yesterday he has 8 seizures. Patient reports he takes depakote 500mg twice daily and that today he finished his daily dose. Patient notes he is homeless and lives in a group home. Patient denies fever, chills and headache. Patient seen and examined at bedside. No acute distress. No overnight events. Patient denies any new seizures since admission. He is tolerating his medications well. He reports normal BMs and urination. Denies fever, chills, headache, changes in vision, chest pain, palpitations, dyspnea, cough, abdominal pain, nausea/vomiting, diarrhea/constipation. 12-point review of systems is otherwise negative without any additional acute complaints. Objective - Vital Signs/Intake and Output Vital Signs (last 24 hours): Temp Pulse Resp BP Pulse Ox 97.7 F 80 20 114/74 96 11/19/17 08:28 11/19/17 08:28 11/19/17 08:28 11/19/17 08:28 11/19/17 08:28 Intake and Output: 11/19/17 11/19/17 06:59 18:59 Intake Total 2090 Output Total 0 Balance 2090 - Medications Medications: Current Medications Aripiprazole (Abilify) 15 mg PO DAILY [facility] Divalproex Sodium (Depakote Dr) 500 mg PO BID [facility] Last Admin: 11/18/17 21:03 Dose: 500 mg Gabapentin (Neurontin) 300 mg PO TID [facility] Last Admin: 11/19/17 09:40 Dose: 300 mg Fosphenytoin Sodium 1,000 mg/ (Sodium Chloride) 70 mls @ 100 mls/hr IV STAT [facility] Last Admin: 11/17/17 20:08 Dose: 100 mls/hr Dextrose/Sodium Chloride (Dextrose 5%/0.45% Ns 1000 Ml) 1,000 mls @ 80 mls/hr IV .[id number] [facility] Last Admin: 11/19/17 02:30 Dose: 80 mls/hr Lorazepam (Ativan) 2 mg PO Q4 PRN PRN Reason: Other Phenytoin (Dilantin) 100 mg PO TID [facility] Last Admin: 11/18/17 17:47 Dose: 100 mg Pneumococcal Polyvalent Vaccine (Pneumovax 23 Vaccine) 0.5 ml IM .ONCE ONE Stop: 11/19/17 10:01 Thiamine HCl (Vitamin B1 Tab) 100 mg PO DAILY [facility] Last Admin: 11/19/17 09:40 Dose: 100 mg - Labs Labs: 11/17/17 19:27 11/17/17 19:27 - Additional Findings Additional findings: - Constitutional Appears: Non-toxic, No Acute Distress - Head Exam Head Exam: ATRAUMATIC, NORMAL INSPECTION - Eye Exam Eye Exam: EOMI, Normal appearance - Respiratory Exam Respiratory Exam: NORMAL BREATHING PATTERN. absent: Rales, Wheezes - Cardiovascular Exam Cardiovascular Exam: Regular Rate, +S1, +S2 - GI/Abdominal Exam GI & Abdominal Exam: Soft, Normal Bowel Sounds. absent: Tenderness - Extremities Exam Extremities Exam: Full ROM, Normal Inspection. absent: Pedal Edema, Tenderness - Back Exam Back Exam: NORMAL INSPECTION. absent: CVA tenderness (L), CVA tenderness (R) - Neurological Exam Neurological Exam: Alert, Awake, Oriented x3 - Psychiatric Exam Psychiatric exam: Normal Affect, Normal Mood - Skin Skin Exam: Dry, Intact, Normal Color, Warm Assessment and Plan - Assessment and Plan (Free Text) Assessment: Tonic-clonic seizure, 11/19: f/u MRI brain official read. Neuro consult, Dr. Jose, f/u recs CXR 11/17/17: mild venous congestion, otherwise normal. see full report. Marylou Deutsch) 500 mg PO BID [facility] Neurontin) 300 mg PO TID [facility] Fosphenytoin Sodium 1,000 mg @ 100 STAT Ativan) 2 mg PO Q4 PRN Dilantin) 100 mg PO TID [facility] Vitamin B1 Tab) 100 mg PO DAILY [facility] Bipolar 1 disorder Abilify) 15 mg PO DAILY [facility] patient followup with outpatient psychiatrist Prophylaxis Dextrose 5%/0.45% Ns 1000 Ml) 1,000 mls @ 80 mls/hr IV .[id number] [facility] Pneumovax 23 Vaccine) 0.5 ml IM SCDs Pepcid 20mg PO BID Case discussed with attending. All medical management as per Dr. Booker Mayes.
[2017-11-19] MEDS: Divalproex 500 mg DR Tab PO SCH (09:48)
[2017-11-19] MEDS ORDERED: Pneumococcal 23-Valent Vaccine IM ONE (10:00)
[2017-11-19] MEDS: Phenytoin 100 mg/4 ml Oral Susp UD PO SCH ×2 (10:01→14:08)
[2017-11-19 11:26] LABS: BASO # 0.1 K/uL (0.0-0.2); BASO % 0.9 % (0.0-2.0); EOS # 0.1 K/uL (0.0-0.7); EOS % 1.4 % (0.0-4.0); HEMOGLOBIN 15.8 g/dL (12.0-18.0); LYMPH # 1.8 K/uL (1.0-4.3); LYMPH % 28.8 % (20.0-40.0); MEAN CELL VOLUME 87.2 fL (80.0-94.0); MEAN CORPUSCULAR HEMOGLOBIN 30.2 pg (27.0-31.0); MEAN CORPUSCULAR HGB CONC 34.6 g/dL (33.0-37.0); MEAN PLATELET VOLUME 8.6 fL (7.2-11.7); MONO # 0.6 K/uL (0.0-0.8); MONO % 10.4 % (0.0-10.0); NEUT # 3.6 K/uL (1.8-7.0); NEUT % 58.5 % (50.0-75.0); NRBC % 0.1 % (0.0-2.0); RBC 5.24 Mil/uL (4.40-5.90); WHITE BLOOD COUNT 6.1 K/uL (4.8-10.8)
[2017-11-19 11:40] LABS: ALB/GLOB RATIO 1.9 (1.0-2.1); ALBUMIN 4.3 g/dL (3.5-5.0); ALT/SGPT 31 U/L (21-72); AST/SGOT 17 U/L (17-59); BLOOD UREA NITROGEN 13 mg/dL (9-20); CALCIUM 9.3 mg/dl (8.6-10.4); GFR AFRICAN-AMERICAN > 60; GFR NON-AFRICAN AMERICAN > 60
[2017-11-19] MEDS ORDERED: Divalproex 250 mg DR Tab PO SCH (14:40)
--- NOTE | 2017-11-19 15:37 | MRI ---
Date of service: 11/19/2017 PROCEDURE: MRI BRAIN WITHOUT CONTRAST HISTORY: seizure COMPARISON: None available. TECHNIQUE: Multiplanar, multisequence MR images of the brain were obtained without intravenous contrast enhancement. FINDINGS: HEMORRHAGE: None DWI: No evidence of an acute or early subacute infarction. BRAIN PARENCHYMA: Intrinsic signal throughout the romero and white matter structures above below the tentorium appears within normal limits including the brainstem. There is no mass effect, parenchymal edema or loss of the corticomedullary differentiation. Midline brain anatomy appears within normal limits including the corpus callosum, brainstem and craniocervical junction. There is no suspicious extra-axial fluid collection identified. Occasional dilated perivascular spaces are identified at the inferior bilateral basal ganglia. Mesial temporal lobe regions appear symmetric and nonfocal. VENTRICLES: Unremarkable. No hydrocephalus. CRANIUM: Unremarkable. ORBITS: Grossly unremarkable. PARANASAL SINUSES/MASTOIDS: Clear VASCULAR SYSTEM: Skull base flow voids intact. OTHER FINDINGS: None. IMPRESSION: Unremarkable non contrast enhanced MRI of the brain.
--- NOTE | 2017-11-19 18:53 | PN ---
Copied To: Octavio Jose MD Attending MD: Octavio Jose MD DATE: 11/19/2017 NEUROLOGY PROGRESS NOTE SUBJECTIVE: The patient is sitting on the bed, in no acute distress. Denies having any headache or dizziness. The patient had no further seizure. PHYSICAL EXAMINATION: VITAL SIGNS: His blood pressure is 114/74, heart rate is 80 per minute, breathing at a rate of 16 per minute, and temperature 97.7 degrees Fahrenheit. HEENT: Head is normocephalic and atraumatic. NECK: Supple. There are no carotid bruits. LUNGS: Clear. CARDIOVASCULAR SYSTEM: S1 and S2 audible. No murmurs. ABDOMEN: Soft and nontender. Bowel sounds are present. NEUROLOGIC EXAMINATION: Mental status: The patient is awake, alert, and oriented to time, place, and person. Speech is fluent. Naming and repetition normal. Memory and cognition are intact. Cranial nerve examination: Pupils are 3 mm bilaterally, reactive to light. Visual de la garza are full. Extraocular movements are intact. There is no facial asymmetry. Palate is upgoing bilaterally and tongue is midline. Motor examination: Tone is normal. Power is 5/5 bilaterally in all extremities. Reflexes are 1+ and symmetrical. Gait is narrow based. LABORATORY DATA: Reviewed shows Dilantin level of 6.6 and valproic acid 29.9. IMPRESSION: Seizure disorder with breakthrough seizures. RECOMMENDATIONS: 1. We will increase the dose of Depakote to 750 mg twice a day. 2. Since the patient had no further seizures and Dilantin level was subtherapeutic and Depakote level was also subtherapeutic, we will stop Dilantin and continue him on Depakote with increased dose. 3. Please follow up the results of the MRI of the brain which was done today. 4. if the patient remains seizure free and MRI of the brain does not show any acute intracranial pathology then he may be discharged with outpatient followup. Thank you for the opportunity to participate in the care of this patient. Octavio Jose MD
[2017-11-20 07:17] LABS: BASO % 0.6 % (0.0-2.0); EOS # 0.1 K/uL (0.0-0.7); EOS % 1.4 % (0.0-4.0); HEMOGLOBIN 15.8 g/dL (12.0-18.0); LYMPH # 2.7 K/uL (1.0-4.3); LYMPH % 32.7 % (20.0-40.0); MEAN CELL VOLUME 88.1 fL (80.0-94.0); MEAN CORPUSCULAR HEMOGLOBIN 30.2 pg (27.0-31.0); MEAN CORPUSCULAR HGB CONC 34.3 g/dL (33.0-37.0); MEAN PLATELET VOLUME 8.5 fL (7.2-11.7); MONO # 0.8 K/uL (0.0-0.8); MONO % 9.7 % (0.0-10.0); NEUT # 4.6 K/uL (1.8-7.0); NEUT % 55.6 % (50.0-75.0); NRBC % 0.1 % (0.0-2.0); RBC 5.23 Mil/uL (4.40-5.90); WHITE BLOOD COUNT 8.2 K/uL (4.8-10.8)
[2017-11-20 07:30] LABS: ALB/GLOB RATIO 1.6 (1.0-2.1); ALBUMIN 4.1 g/dL (3.5-5.0); ALT/SGPT 29 U/L (21-72); AST/SGOT 18 U/L (17-59); BLOOD UREA NITROGEN 13 mg/dL (9-20); CALCIUM 9.3 mg/dl (8.6-10.4); GFR AFRICAN-AMERICAN > 60; GFR NON-AFRICAN AMERICAN > 60
--- NOTE | 2017-11-20 07:32 | CP.PCM.PN ---
Subjective - Date & Time of Evaluation Date of Evaluation: 11/20/17 Time of Evaluation: 07:30 - Subjective Subjective: PGY3 Resident - Medicine Progress Note Patient seen and examined at bedside. No acute distress. No overnight events. Patient denies any new seizures since admission. He is tolerating his medications well. 12-point review of systems is otherwise negative without any additional acute complaints. -- Patient is stable for discharge per Dr. Mayes. Patient should resume all medications as outlined in this document. Additionally, patient should take the new medications listed below (scripts provided). 1. Please make an appointment and follow up with your Primary Doctor Dr. Mayes within one week of discharge. 2. Please make an appointment and follow up with your Neurologist Dr. Jose within one week of discharge. Patient should return to ED immediately if symptoms return or worsen. Instructions discussed with patient who understood and agreed. Newly prescribed medications: Depakote DR 750mg PO BID #60 Objective - Vital Signs/Intake and Output Vital Signs (last 24 hours): Temp Pulse Resp BP Pulse Ox 98.5 F 60 20 111/70 98 11/19/17 23:25 11/19/17 23:25 11/19/17 23:25 11/19/17 23:25 11/19/17 23:25 Intake and Output: 11/20/17 11/20/17 06:59 18:59 Intake Total 500 240 Balance 500 240 - Medications Medications: Current Medications Aripiprazole (Abilify) 15 mg PO DAILY [facility] Last Admin: 11/19/17 09:48 Dose: 15 mg Divalproex Sodium (Depakote Dr) 750 mg PO BID [facility] Last Admin: 11/19/17 17:23 Dose: 750 mg Famotidine (Pepcid) 20 mg PO BID [facility] Last Admin: 11/19/17 17:24 Dose: 20 mg Gabapentin (Neurontin) 300 mg PO TID [facility] Last Admin: 11/19/17 17:24 Dose: 300 mg Fosphenytoin Sodium 1,000 mg/ (Sodium Chloride) 70 mls @ 100 mls/hr IV STAT [facility] Last Admin: 11/17/17 20:08 Dose: 100 mls/hr Lorazepam (Ativan) 2 mg PO Q4 PRN PRN Reason: Other Thiamine HCl (Vitamin B1 Tab) 100 mg PO DAILY [facility] Last Admin: 11/19/17 09:40 Dose: 100 mg - Labs Labs: 11/20/17 07:04 11/19/17 11:14 - Additional Findings Additional findings: - Constitutional Appears: Non-toxic, No Acute Distress - Head Exam Head Exam: ATRAUMATIC, NORMAL INSPECTION - Eye Exam Eye Exam: EOMI, Normal appearance - Respiratory Exam Respiratory Exam: NORMAL BREATHING PATTERN. absent: Rales, Wheezes - Cardiovascular Exam Cardiovascular Exam: Regular Rate, +S1, +S2 - GI/Abdominal Exam GI & Abdominal Exam: Soft, Normal Bowel Sounds. absent: Tenderness - Extremities Exam Extremities Exam: Full ROM, Normal Inspection. absent: Pedal Edema, Tenderness - Back Exam Back Exam: NORMAL INSPECTION. absent: CVA tenderness (L), CVA tenderness (R) - Neurological Exam Neurological Exam: Alert, Awake, Oriented x3 - Psychiatric Exam Psychiatric exam: Normal Affect, Normal Mood - Skin Skin Exam: Dry, Intact, Normal Color, Warm Assessment and Plan - Assessment and Plan (Free Text) Assessment: Tonic-clonic seizure, 11/20: MRI brain- Unremarkable non contrast enhanced MRI of the brain. Neuro consult, Dr. Jose, f/u recs CXR 11/17/17: mild venous congestion, otherwise normal. see full report. Depakote Dr) 500 mg PO BID [facility] Neurontin) 300 mg PO TID [facility] Fosphenytoin Sodium 1,000 mg @ 100 STAT Ativan) 2 mg PO Q4 PRN Dilantin) 100 mg PO TID [facility] Vitamin B1 Tab) 100 mg PO DAILY [facility] Bipolar 1 disorder Abilify) 15 mg PO DAILY [facility] patient followup with outpatient psychiatrist Prophylaxis Dextrose 5%/0.45% Ns 1000 Ml) 1,000 mls @ 80 mls/hr IV .[id number] [facility] Pneumovax 23 Vaccine) 0.5 ml IM SCDs Pepcid 20mg PO BID Case discussed with attending. All medical management as per Dr. Booker Mayes. --- Patient is stable for discharge per Dr. Mayes. Patient should resume all medications as outlined in this document. Additionally, patient should take the new medications listed below (scripts provided). 1. Please make an appointment and follow up with your Primary Doctor Dr. Mayes within one week of discharge. 2. Please make an appointment and follow up with your Neurologist Dr. Jose within one week of discharge. Patient should return to ED immediately if symptoms return or worsen. Instructions discussed with patient who understood and agreed. Newly prescribed medications: Depakote DR 750mg PO BID #60
[2017-11-20 08:04] VITALS: BP 153/84; PULSE 67; TEMP 97.9; O2SAT 100
--- NOTE | 2017-11-20 08:28 | HP ---
Copied To: Ramon Mayes MD Attending MD: Ramon Mayes MD HISTORY OF PRESENT ILLNESS: This is a 27-year-old male chief complaint of seizure. The patient came to the ER. The patient was given IV Celebrex prior to admission. The patient denies drinking. Denies any illicit drugs. Bipolar disorder for which he used Invega, Abilify, Depakote, and gabapentin. PHYSICAL EXAMINATION: GENERAL: The patient is awake, alert, and oriented to time and place. VITAL SIGNS: Temperature 98, pulse 90. HEENT: Within normal limits. NECK: Supple. CHEST: Symmetrical. HEART: Regular. ABDOMEN: Soft. EXTREMITIES: No edema. NEUROLOGIC: Grossly intact. The patient suffers from seizure disorder, bipolar disorder. The patient is to bed rest. Neuro check, seizure precaution, neurology evaluation, EEG, and MRI. Ramon Mayes MD
--- NOTE | 2017-11-20 16:40 | CARD ---
APPROVED REPORT Date of service: 11/17/2017 EKG Measurement Heart [id number] <Conclusion> Sinus arrhythmia Otherwise normal ECG
== END 2017-11-20 08:25 | disposition home or self-care (01) ==
LOC: C.ER 18:47 → C.9E 20:02 → C.3T 21:43
PROVIDERS: ADMIT Internal Medicine Pulmonary Disease; ATTEND Internal Medicine Pulmonary Disease
DX: G40.209 Localization-related (focal) (partial) symptomatic epilepsy and epileptic syndromes with complex partial seizures, not intractable, without status epilepticus (principal); F31.9 Bipolar disorder, unspecified; Z59.0 Homelessness
CPT/HCPCS: 36415; 70551; 71045; 80053; 80164; 80185; 80324; 80345; 80346; 80349; 80353; 80358; 80361; 81001; 82550; 83735; 83992; 84100; 85025; 90471; 90732; 93005; 99285; G0378; J7030; J7042; Q2009

== ENCOUNTER 2018-06-29 19:58 | Emergency (ER) | payer MEDICAID ==
[2018-06-29 19:58] VITALS: BMI 29.1
[2018-06-29 20:14] VITALS: RESP 20; O2SAT 98
[2018-06-29] MEDS ORDERED: Sodium Chloride 0.9% 1,000 ML IV ONE (20:33)
--- NOTE | 2018-06-29 20:39 | C.PDOC ---
History Of Present Illness 28 year old male with Hx of seizures and bipolar disorder presents for evaluation reporting feeling lightheaded, dizzy, and near syncope for the past few days. Patient notes symptoms occur after he eats. He reports some rectal bleeding. also states "he saw blood in his urine" Denies known fever or other complaints. at bedside pt states he is recnelyt homeless Time Seen by Provider: 06/29/18 20:07 Chief Complaint (Nursing): Weakness/Neurological Deficit History Per: Patient History/Exam Limitations: no limitations Onset/Duration Of Symptoms: Days Current Symptoms Are (Timing): Still Present Seizure Or Post-ictal Symptoms: None Fall Associated With With Symptoms: No Recent travel outside of the [place]: No - Symptoms Of CVA Associated Symptoms: denies: Impaired Speech, Seizure Activity, New Vision Deficit(Left), New Vision Deficit(Right), Decreased Ability To Walk, New Confusion Past Medical History Reviewed: Historical Data, Nursing Documentation, Vital Signs Vital Signs: Last Vital Signs Temp 98.1 F 06/29/18 20:10 Pulse 103 H 06/29/18 20:10 Resp 20 06/29/18 20:10 BP 139/93 H 06/29/18 20:10 Pulse Ox 98 06/29/18 20:10 - Medical History PMH: Bipolar Disorder, Schizophrenia, Seizures Denies: Diabetes, Hepatitis, HIV, HTN, Chronic Kidney Disease, Sexually Transmitted Disease Surgical History: Cholecystectomy - [facility] GROUP PSYCHOTHERAPY (06/05/17) INDIVIDUAL PSYCHOTHERAPY, COGNITIVE-BEHAVIORAL (06/05/17) INDIVIDUAL PSYCHOTHERAPY, SUPPORTIVE (06/05/17) Family History: States: Unknown Family Hx - Social History Hx Alcohol Use: No Hx Substance Use: No - Immunization History Hx Tetanus Toxoid Vaccination: Yes Hx Influenza Vaccination: Yes Hx Pneumococcal Vaccination: No Review Of Systems Constitutional: Negative for: Fever, Chills Cardiovascular: Positive for: Light Headedness. Negative for: Chest Pain, Palpitations Respiratory: Negative for: Cough, Shortness of Breath Gastrointestinal: Positive for: Other (Rectal bleeding). Negative for: Nausea, Vomiting Neurological: Positive for: Dizziness, Other (Near syncope). Negative for: Weakness, Numbness Physical Exam - Physical Exam Appears: Non-toxic, Other (Flat affect) Skin: Normal Color, Warm Head: Atraumatic, Normacephalic Eye(s): bilateral: Normal Inspection Oral Mucosa: Moist Neck: Normal, Supple Chest: Symmetrical, No Tenderness Cardiovascular: Rhythm Regular Respiratory: Normal Breath Sounds, No Rales, No Rhonchi, No Wheezing Gastrointestinal/Abdominal: Soft, No Tenderness Neurological/Psych: Oriented x3, Normal Speech ED Course And Treatment - Laboratory Results Result Diagrams: 06/29/18 20:57 06/29/18 20:57 ECG: Interpreted By Me, Viewed By Me ECG Rhythm: Sinus Rhythm Interpretation Of ECG: No ST/T wave changes Rate From EC O2 Sat by Pulse Oximetry: 98 (Room air) Pulse Ox Interpretation: Normal Medical Decision Making Medical Decision Making: ?near syncope. pt poor histoarin. reports gi bleeding and heamturia although in er guiac neg, no blood in urine. Plan: * Blood work * EKG * CXR * Occult blood test * UA * IV fluids slept through entire ed course. neuro intact. steady gait. labs neg. h/h stable guiac ua neg. advise outpt fu return precautions Disposition - Disposition Referrals: [facility] [Outside] [facility] [Outside] Esvin Rios MD [Staff Provider] - Rashid Sharif MD [Staff Provider] - Disposition: HOME/ ROUTINE Disposition Time: 21:00 Condition: STABLE Additional Instructions: return to er with worsening symptoms or concerns. Instructions: Fatigue, Dizziness, Nonvertigo, (DC) Forms: [facility] ([place]) - Clinical Impression Clinical Impression: Homeless, Dizziness - Scribe Statement The provider has reviewed the documentation as recorded by the Scribe Yohan Rob All medical record entries made by the Scribe were at my direction and personally dictated by me. I have reviewed the chart and agree that the record accurately reflects my personal performance of the history, physical exam, medical decision making, and the department course for this patient. I have also personally directed, reviewed, and agree with the discharge instructions and disposition.
[2018-06-29 20:52] LABS: SQUAMOUS EPITHIAL 1 /hpf (0-5); URINE BACTERIA RARE (<OCC); URINE BILIRUBIN NEGATIVE (NEGATIVE); URINE BLOOD NEGATIVE (NEGATIVE); URINE CLARITY Clear (Clear); URINE COLOR Yellow (YELLOW); URINE GLUCOSE (UA) NORMAL (Normal); URINE LEUKOCYTE ESTERASE NEG Leu/uL (Negative); URINE PROTEIN NEGATIVE (NEGATIVE); URINE UROBILINOGEN NORMAL mg/dL (0.2-1.0)
[2018-06-29 21:07] LABS: BASO % 0.6 % (0.0-2.0); EOS # 0.1 K/uL (0.0-0.7); EOS % 0.8 % (0.0-4.0); HEMOGLOBIN 14.6 g/dL (12.0-18.0); LYMPH # 2.3 K/uL (1.0-4.3); LYMPH % 27.5 % (20.0-40.0); MEAN CELL VOLUME 87.2 fL (80.0-94.0); MEAN CORPUSCULAR HEMOGLOBIN 29.8 pg (27.0-31.0); MEAN CORPUSCULAR HGB CONC 34.2 g/dL (33.0-37.0); MEAN PLATELET VOLUME 8.5 fL (7.2-11.7); MONO # 0.9 K/uL (0.0-0.8); MONO % 11.5 % (0.0-10.0); NEUT # 4.9 K/uL (1.8-7.0); NEUT % 59.6 % (50.0-75.0); NRBC % 0.1 % (0.0-2.0); RBC 4.89 Mil/uL (4.40-5.90); RED CELL DISTRIBUTION WIDTH 14.1 % (11.5-14.5); WHITE BLOOD COUNT 8.2 K/uL (4.8-10.8)
[2018-06-29 21:09] LABS: INR 1.1; PROTHROMBIN TIME 12.2 SECONDS (9.7-12.2)
[2018-06-29 21:27] LABS: BARBITURATES, UR NEGATIVE (NEGATIVE); BENZODIAZEPINES, UR NEGATIVE (NEGATIVE); OPIATES, UR NEGATIVE (NEGATIVE); PHENCYCLIDINE, UR NEGATIVE (NEGATIVE)
[2018-06-29 21:27] LABS: ALB/GLOB RATIO 1.7 (1.0-2.1); ALBUMIN 4.4 g/dL (3.5-5.0); ALT/SGPT 21 U/L (21-72); AST/SGOT 35 U/L (17-59); BLOOD UREA NITROGEN 16 mg/dL (9-20); CALCIUM 9.8 mg/dl (8.6-10.4); GFR NON-AFRICAN AMERICAN > 60; LIPASE 90 U/L (23-300)
[2018-06-29 21:57] VITALS: BP 121/74; PULSE 74; TEMP 98.6
--- NOTE | 2018-06-30 12:39 | RAD ---
Date of service: 06/29/2018 PROCEDURE: CHEST RADIOGRAPH, 1 VIEW HISTORY: chest pain COMPARISON: Comparison is made with 11/17/2017 FINDINGS: LUNGS: Clear. PLEURA: No pneumothorax or pleural fluid seen. CARDIOVASCULAR: No aortic atherosclerotic calcification present. Normal. OSSEOUS STRUCTURES: No significant abnormalities. VISUALIZED UPPER ABDOMEN: Normal. OTHER FINDINGS: None. IMPRESSION: No active disease.
== END 2018-06-29 21:56 | disposition home or self-care (01) ==
LOC: C.ER 19:58
DX: Z59.0 Homelessness (principal); R42 Dizziness and giddiness; F20.9 Schizophrenia, unspecified; F31.9 Bipolar disorder, unspecified; R56.9 Unspecified convulsions
CPT/HCPCS: 71045; 80053; 80164; 80324; 80345; 80346; 80349; 80353; 80358; 80361; 81001; 82948; 83690; 83992; 84484; 85025; 85610; 85730; 86850; 86900; 96360; 99285; G0328; J7030